=== PATIENT | female | born 1965 | race Caucasian/White ===

== ENCOUNTER 2017-11-28 13:07 | Emergency (ER) | payer OTHER ==
[~2017-11-28] VITALS: Ht 170.2 cm; Wt 59.0 kg
[~2017-11-28 13:07] MED LIST: CIPRO500 MG OR; LORTAB 10 PO; LORTAB 5 OR; PREVACID30 M2 PO; ZOFRAN ODT4 MG OR; ZOLOFT25 MG OR
[2017-11-28 13:50] LABS: INFLUENZA A NONE DETECTED (NONE DETECT); INFLUENZA B NONE DETECTED (NONE DETECT)
[2017-11-28 14:11] LABS: URINE BILIRUBIN - DIPSTICK NEGATIVE (NEGATIVE); URINE BLOOD DIPSTICK SMALL (NEGATIVE); URINE COLOR YELLOW; URINE GLUCOSE - DIPSTICK NEGATIVE (NEGATIVE); URINE KETONE NEGATIVE (NEGATIVE); URINE NITRITE - DIPSTICK NEGATIVE (Negative); URINE PH 5.5 (4.5-8.0); URINE PROTEIN - DIPSTICK NEGATIVE (NEG-TRACE); URINE UROBILINOGEN - DIPSTICK 0.2 E.U./dL (0.2)
[2017-11-28 14:16] LABS: URINE CLARITY HAZY; URINE LEUK ESTERASE SMALL (NEGATIVE)
[2017-11-28 14:39] LABS: URINE SQUAMOUS EPITHELIAL CELL MANY EPI/hpf (0-FEW)
[2017-11-28] MEDS ORDERED: OMNICEF300 M1 PO (14:44)
[2017-11-28 14:53] VITALS: BP 138/77
== END 2017-11-28 15:00 | disposition home or self-care (01) | DRG 690 ==
LOC: ED 13:07
PROVIDERS: Family Medicine
DX: N39.0 Urinary tract infection, site not specified (principal); J02.0 Streptococcal pharyngitis

== ENCOUNTER 2018-02-23 18:49 | Emergency (ER) | payer OTHER ==
[~2018-02-23] VITALS: Ht 170.2 cm; Wt 59.1 kg
[~2018-02-23 18:49] MED LIST changes: +OMNICEF300 M1 PO
[2018-02-23 19:18] LABS: HEMATOCRIT 38.9 % (37.0-47.0); IMMATURE GRANULOCYTES 0.3 % (0.0-5.0); MEAN CORPUSCULAR HGB 31.4 pG CALC (26.0-32.0); MEAN CORPUSCULAR HGB CONC 32.4 g/L CALC (32.0-36.0); NEUT# 12.96 thou/uL (2.00-7.15); RED BLOOD COUNT 4.01 mill/uL (4.20-5.60); RED CELL DISTRI WIDTH 13.2 % (11.5-15.5)
[2018-02-23 19:19] LABS: HEMOGLOBIN 12.6 g/dl (12.0-16.0)
[2018-02-23 19:36] LABS: ALBUMIN 3.8 g/dL (3.2-5.0); ALKALINE PHOSPHATASE 88 u/l (38-126); ANION GAP 15 (6-22 (CALC)); BILIRUBIN, TOTAL 0.4 mg/dL (0.0-1.4); BUN 23 mg/dL (7-17); BUN/CREATININE RATIO 23 (12-20 (CALC)); CARBON DIOXIDE 22 mmol/l (22-30); CHLORIDE 103 mmol/l (95-108); GFR 58 ML/MIN (>=60 (CALC)); GFR FOR AFR.AMER. > 60 ML/MIN (>=60 (CALC)); SGOT/AST 31 u/l (14-36); SODIUM 137 mmol/l (137-146)
[2018-02-23] MEDS ORDERED: TESSALON PER100 MG PO (20:05)
[2018-02-23] MEDS ORDERED: BIAXIN500 MG PO (20:05)
[2018-02-23 20:09] VITALS: BP 134/70
== END 2018-02-23 20:27 | disposition home or self-care (01) | DRG 203 ==
LOC: ED 18:49
PROVIDERS: Family Medicine
DX: J20.9 Acute bronchitis, unspecified (principal); R05 Cough; R09.81 Nasal congestion; R50.9 Fever, unspecified

== ENCOUNTER 2020-07-21 05:17 | Emergency (ER) | payer BC ==
[~2020-07-21] VITALS: Ht 170.2 cm; Wt 78.0 kg
[~2020-07-21 05:17] MED LIST changes: +BIAXIN500 MG PO; +TESSALON PER100 MG PO
[2020-07-21 05:57] LABS: HEMATOCRIT 33.4 % (37.0-47.0); HEMOGLOBIN 10.4 g/dl (12.0-16.0); IMMATURE GRANULOCYTES 0.7 % (0.0-5.0); MEAN CORPUSCULAR HGB 29.9 pG CALC (26.0-32.0); MEAN CORPUSCULAR HGB CONC 31.1 g/dL CAL (32.0-36.0); NEUT# 9.48 thou/uL (2.00-7.15); RED BLOOD COUNT 3.48 mill/uL (4.20-5.60); RED CELL DISTRI WIDTH 14.5 % (11.5-15.5)
[2020-07-21 06:26] LABS: ALBUMIN 3.2 g/dL (3.2-5.0); ALKALINE PHOSPHATASE 131 u/l (38-126); ANION GAP 11 (6-22 (CALC)); BILIRUBIN, TOTAL 0.4 mg/dL (0.0-1.4); BUN 8 mg/dL (7-17); BUN/CREATININE RATIO 13 (12-20 (CALC)); CARBON DIOXIDE 27 mmol/l (22-30); CHLORIDE 101 mmol/l (95-108); CREATININE 0.6 mg/dL (0.5-1.0); GFR > 60 ML/MIN (>=60 (CALC)); GFR FOR AFR.AMER. > 60 ML/MIN (>=60 (CALC)); POTASSIUM 3.6 mmol/l (3.5-5.1); SGOT/AST 43 u/l (14-36); SODIUM 135 mmol/l (137-146); TOTAL PROTEIN 6.3 g/dL (6.3-8.2)
[2020-07-21] MEDS ORDERED: LIDOCAINE HCL VIS2 % TP (06:42)
[2020-07-21] MEDS ORDERED: AMOXICILLIN500 MG PO (06:42)
[2020-07-21 06:49] VITALS: BP 115/78
== END 2020-07-21 06:57 | disposition home or self-care (01) | DRG 153 ==
LOC: ED 05:17
PROVIDERS: Emergency Medicine
DX: J02.9 Acute pharyngitis, unspecified (principal); Z20.822 Contact with and (suspected) exposure to COVID-19

== ENCOUNTER 2022-09-11 10:43 | Day surgery (SDC) | payer BC ==
[~2022-09-11] VITALS: Ht 172.7 cm; Wt 68.0 kg
[~2022-09-11 10:43] MED LIST changes: +AMOXICILLIN500 MG PO; +ESTRADIOL1 MG PO; +LIDOCAINE HCL VIS2 % TP; +ZOLOFT50 MG PO
[2022-09-11 13:02] VITALS: BP 129/67
== END 2022-09-11 12:53 | disposition home or self-care (01) | DRG 951 ==
LOC: ENDO 10:43 → ORM 10:45 → ENDO 12:53
PROVIDERS: ATTEND Internal Medicine Gastroenterology
PROC: 0DJD8ZZ Inspection of Lower Intestinal Tract, Via Natural or Artificial Opening Endoscopic (ICD-10-PCS; principal; 2022-09-11)
DX: Z12.11 Encounter for screening for malignant neoplasm of colon (principal); K64.8 Other hemorrhoids